=== PATIENT | male | born 1975 | race African-American/Black ===

== ENCOUNTER 2023-08-26 11:28 | Emergency (ER) | payer BC, SELFPAY ==
[2023-08-26 11:32] VITALS: BP 177/108
--- NOTE | 2023-08-26 12:27 | ED.GENMED ---
History of Present Illness
<Rosetta Gan PA-C - Last Filed: 08/26/23 22:42>
General
Chief Complaint: Extremity Pain (non-traumatic)
Source: patient
Exam Limitations: none
Time Seen by Provider: 08/26/23 12:27
Nursing documentation reviewed up to this point in time: agreed with
History of Present Illness
History of Present Illness:
This is a 47-year-old male with past medical history of leukemia, hypertension, sleep apnea presenting emergency department today with concerns of low lower back and right hip pain. Patient states that he was diagnosed with CLL in January 2022,
and states that he was diagnosed because he was having a lot of hip pain, back pain, and weight loss. Patient follows with Dr. Lerner with [facility] at [place]. Patient is set to receive treatment in December and has not started treatment
because he is going to have a baby soon and is trying to save money. Although patient has had chronic pain with his leukemia, he states that it got a lot worse the past week. Patient contacted his oncology team with these symptoms and was advised to
report to the emergency department. Patient denies any falls, fevers or chills, ecchymosis, chest pain, shortness of breath, abdominal pain, nausea or vomiting.
Past History
<Rosetta Gan PA-C - Last Filed: 08/26/23 22:42>
Past History
ED Past Medical History: Cancer (CLL), HTN and Other (Sleep apnea)
ED Past Surgical History: Orthopedic (Hand surgery)
Social History
Tobacco: Non-smoker
Alcohol: Occasional
Drug: None
Personal: Single
Living: alone
Review of Systems
<Rosetta Gan PA-C - Last Filed: 08/26/23 22:42>
Review of Systems
All Other Systems: ROS reviewed and negative except as documented in HPI and ROS
Phy Exam
<Rosetta Gan PA-C - Last Filed: 08/26/23 22:42>
Physical Exam
Physical Exam:
Vitals: Patient is afebrile
General: Patient is well appearing and in no acute distress
Skin: Warm and dry, no rashes or lesions. No ecchymosis overlying
Head: Normocephalic, atraumatic
Eyes: Sclera non-icteric, EOMs intact, PERRLA
Cardiac: Regular rate and rhythm, no murmurs
Pulm: Normal respiratory effort
Abdomen/Pelvis: No abdominal tenderness to palpation. No palpable masses. No palpable lymphadenopathy in the right inguinal region.
Musculoskeletal: Mild pain with passive ROM of right hip. No pain with passive ROM of left hip. No bony tenderness of the right hip. No bony tenderness of the lumbar spine. Full ROM of lumbar spine.
Neuro: CN II-XII intact. No focal neurologic deficits.
Psychiatric: Appropriate mood and affect
Course
<Rosetta Gan PA-C - Last Filed: 08/26/23 22:42>
Orders/Labs/Results
Orders:
Orders
08/26/23 13:25
Complete Blood Count/With Diff Urgent
Comprehensive Metabolic Panel Urgent
08/26/23 13:33
CT Abd/pel Without Iv Or Oral Urgent
Comment:
Reason For Exam: right flank pain, hip pain
08/26/23 13:57
Acetaminophen [Tylenol] 1,000 mg PO NOW STA
08/26/23 14:00
Lidocaine [Lidocaine 4% Patch] 1 patch TOPICAL DAILY
Abnormal Lab Results
08/26/23
13:25
WBC 174.4 H* 10^3/uL
(4.8-10.8)
RBC 4.11 L 10^6/uL
(4.70-6.10)
Hgb 12.6 L g/dL
(13.0-18.0)
MCV 98.3 H fL
(80.0-94.0)
MCHC 31.2 L g/dL
(33.0-37.0)
RDW 14.8 H %
(11.5-14.5)
Plt Count 111 L 10^3/uL
(130-400)
Abs Immat Gran (auto) 0.1 H 10^3/uL
(0-0.05)
Absolute Lymphs (auto) 169.7 H 10^3/uL
(1.2-3.4)
Absolute Monos (auto) 1.7 H 10^3/uL
(0.1-0.6)
Neutrophils % 1.4 L %
(42.2-75.2)
Lymphocytes % 97.3 H %
(20.5-51.1)
Monocytes % 1.0 L %
(1.7-9.3)
Glucose 114 H mg/dl
(70-99)
08/26/23 13:25
08/26/23 13:25
Vital Signs
Initial and Last Documented VS:
Initial Vital Signs
Temp Pulse Resp BP Pulse Ox
98.2 F 106 18 177/108 98
08/26/23 11:32 08/26/23 11:32 08/26/23 11:32 08/26/23 11:32 08/26/23 11:32
Last Documented Vital Signs
Temp Pulse Resp BP Pulse Ox
98.2 F 82 18 134/86 97
08/26/23 11:32 08/26/23 16:12 08/26/23 16:12 08/26/23 16:12 08/26/23 16:12
<Shun Munoz, DO - Last Filed: 08/26/23 15:58>
Orders/Labs/Results
Orders:
Orders
08/26/23 13:25
Complete Blood Count/With Diff Urgent
Comprehensive Metabolic Panel Urgent
08/26/23 13:33
CT Abd/pel Without Iv Or Oral Urgent
Comment:
Reason For Exam: right flank pain, hip pain
08/26/23 13:57
Acetaminophen [Tylenol] 1,000 mg PO NOW STA
08/26/23 14:00
Lidocaine [Lidocaine 4% Patch] 1 patch TOPICAL DAILY
Abnormal Lab Results
08/26/23
13:25
WBC 174.4 H* 10^3/uL
(4.8-10.8)
RBC 4.11 L 10^6/uL
(4.70-6.10)
Hgb 12.6 L g/dL
(13.0-18.0)
MCV 98.3 H fL
(80.0-94.0)
MCHC 31.2 L g/dL
(33.0-37.0)
RDW 14.8 H %
(11.5-14.5)
Plt Count 111 L 10^3/uL
(130-400)
Abs Immat Gran (auto) 0.1 H 10^3/uL
(0-0.05)
Absolute Lymphs (auto) 169.7 H 10^3/uL
(1.2-3.4)
Absolute Monos (auto) 1.7 H 10^3/uL
(0.1-0.6)
Neutrophils % 1.4 L %
(42.2-75.2)
Lymphocytes % 97.3 H %
(20.5-51.1)
Monocytes % 1.0 L %
(1.7-9.3)
Glucose 114 H mg/dl
(70-99)
08/26/23 13:25
08/26/23 13:25
Vital Signs
Initial and Last Documented VS:
Initial Vital Signs
Temp Pulse Resp BP Pulse Ox
98.2 F 106 18 177/108 98
08/26/23 11:32 08/26/23 11:32 08/26/23 11:32 08/26/23 11:32 08/26/23 11:32
Last Documented Vital Signs
Temp Pulse Resp BP Pulse Ox
98.2 F 82 18 134/86 97
08/26/23 11:32 08/26/23 16:12 08/26/23 16:12 08/26/23 16:12 08/26/23 16:12
<Rosetta Gan PA-C - Last Filed: 08/26/23 22:42>
MDM/Problems Addressed
Differential Diagnosis Includes:
ddx include chronic pain from CLL, retroperitoneal lymphadenopathy, intraabdominal lymphadenopathy, blast crisis,
MDM/Problems Addressed:
Right hip pain, low back pain:
This is a 47-year-old male with past medical history of leukemia, hypertension, sleep apnea presenting emergency department today with concerns of low lower back and right hip pain. Patient has this pain chronically but states that the past few days
it has gotten a lot worse. He is able to ambulate. Afebrile. WBC count today 174, patient showed me his blood work from 2 weeks ago in which his WBC was 172. His CT scan does not show any bony lesions or lymphadenopathy. Lidocaine patch and Tylenol
did help with patients pain. Patient declining opioids at this time. Patient has a follow up appointment with his oncologist on Wednesday. Patient stable for discharge.
Chronic conditions affecting care:
CLL
Acute Exacerbation and/or Progression of Chronic Illness:
CLL
<Rosetta Gan PA-C - Last Filed: 08/26/23 22:42>
*Pulse Oximetry
Patient hypoxic: no
*Critical Care Note
Total Time (30-74mins, 75-104mins- exclusive of procedures): Not Applicable
Data Reviewed
Review of Other/Old Records Reveals: Records (reviewed ER physician documentation where patient first discovered abnormal wbc) and Discharge Summary (reviewed discharge summary)
Source: patient and records
<Rosetta Gan PA-C - Last Filed: 08/26/23 22:42>
Patient Management
Escalation/DeEscalation of care consider admission/obs:
Admission not indicated. Discussed case with my attending Dr. Munoz.
ED Attending Note
<Rosetta Gan PA-C - Last Filed: 08/26/23 22:42>
-
Portions of this chart may have been created with voice recognition software.� Occasional wrong word or��sound alike� substitutions may have occurred due to the inherent limitations of voice recognition software.
<Shun Munoz DO - Last Filed: 08/26/23 15:58>
ED Attending Note
Patient seen and examined by attending physician: Yes
I performed the substantive portion of visit, reviewed & personally made and approve the management plan that is documented in note by myself or BECCA.: Yes
I performed a history and physical exam of patient and discussed management with resident, I reviewed resident's note and agree with documented findings and plan of care.: Yes
ED Attending Note:
I evaluated the patient bedside. The patient is fairly comfortable in appearance at rest. He has been taking acetaminophen 250 mg/ibuprofen 125 mg 2 pills which seem to help at least somewhat. I encouraged him to increase this dosing to 4 pills 4
times per day as needed. CT imaging reassuring.
Discharge Plan
Departure
Patient Disposition: Home (Routine Discharge)
Date of Disposition: 08/26/23
Time of Disposition: 15:57
Patient with high blood pressure during this ER visit?: Yes
Condition: Good
Discharge Problem:
Chronic lymphocytic leukemia, Pain in right hip
Instructions: Muscle and Bone Pain (DC), BLOOD PRESSURE
Prescriptions:
No Action
multivitamin Tablet
1 tab PO DAILY
Motrin Dual Action
2 tab PO DAILYPRN PRN (Reason: mild pain)
Referrals:
UNKNOWN - PT DOES,NOT KNOW [Family Provider] -
Activity Restrictions/Additional Instructions:
Please return to the emergency department should you experience fevers or chills, cough, chest pain, abdominal pain, nausea or vomiting, dizziness, lightheadedness, syncopal episodes, visual changes, or any other concerning signs or symptoms.
The next time you can take Tylenol is 6:00 pm. At that time, you can take 4 of your acetaminophen/motrin combo pills. You can continue these combination pills as follows: 4 pills, 4 times daily as needed.
Please follow-up with your oncologist at [facility] next week.
Interventions
Interventions:
*Risk Screen - Suicide Last Done: 08/26/23 11:36
*General Assessment Last Done: 08/26/23 11:36
*Neglect/Abuse Screening Last Done: 08/26/23 11:36
ED- Fall Risk Assessment Last Done: 08/26/23 12:55
*Nursing Disposition Last Done: 08/26/23 16:12
ED-Skin Assessment Last Done: 08/26/23 12:59
ED-Musculoskeletal Assessment Last Done: 08/26/23 12:54
Discharge Date and Time
Discharge Date/Time: 08/26/23 16:13
Print Language: IRANIAN
[2023-08-26 13:42] LABS: % Eosinophils 0.2 % (0-6); % Immature Granulocytes 0.1 % (0-0.5); % Lymphocytes 97.3 % (20.5-51.1); % Neutrophils 1.4 % (42.2-75.2); Absolute Eosinophils 0.4 10^3/uL (0-0.7); Absolute Immature Granulocytes 0.1 10^3/uL (0-0.05); Absolute Lymphocytes 169.7 10^3/uL (1.2-3.4); Absolute Monocytes 1.7 10^3/uL (0.1-0.6); Absolute Neutrophils 2.4 10^3/uL (1.4-6.5); Hematocrit 40.4 % (39.0-52.0); Hemoglobin 12.6 g/dL (13.0-18.0); Mean Corp Hgb Conc. 31.2 g/dL (33.0-37.0); Mean Corpuscular Hgb 30.7 pg (27.0-31.0); Mean Corpuscular Volume 98.3 fL (80.0-94.0); Mean Platelet Volume 10.2 fL (7.4-10.4); Nucleated Red Blood Cells % 0 % (-); Platelet Count 111 10^3/uL (130-400); Red Blood Cell Count 4.11 10^6/uL (4.70-6.10); Red Cell Dist. Width 14.8 % (11.5-14.5)
[2023-08-26 13:48] LABS: White Blood Cell Count 174.4 10^3/uL (4.8-10.8)
[2023-08-26 14:07] LABS: ALT (SGPT) 19 U/L (0-50); AST (SGOT) 28 U/L (17-59); Albumin 4.9 g/dl (3.5-5.0); Alkaline Phosphatase 66 U/L (38-126); Blood Urea Nitrogen 17 mg/dl (9-20); Carbon Dioxide 29 mmol/L (22-30); Chloride 104 mmol/L (98-107); Glucose 114 mg/dl (70-99); Potassium 4.3 mmol/L (3.5-5.1); Sodium 143 mmol/L (135-145); Total Bilirubin 0.4 mg/dl (0.2-1.3); Total Protein 7.6 g/dl (6.3-8.2); eGFR > 60.00
[2023-08-26] MEDS: TYLENOL 1000 MG PO (14:32)
[2023-08-26] MEDS: LIDOCAINE 4% PATCH 1 PATCH TOPICAL (14:34)
[2023-08-26 16:12] VITALS: BP 134/86
== END 2023-08-26 16:13 | disposition home or self-care (01) ==
LOC: EMR 11:28
PROVIDERS: Physician Assistant; EMERGENCY PHYSICIAN Emergency Medicine
DX: C91.10 Chronic lymphocytic leukemia of B-cell type not having achieved remission (principal); M25.551 Pain in right hip; I10 Essential (primary) hypertension; G47.30 Sleep apnea, unspecified
CPT/HCPCS: 99284; 74176; 80053; 85025